=== PATIENT | male | born 1945 | race Caucasian/White ===

== ENCOUNTER 2020-05-08 09:30 | Outpatient (CLI) | payer MEDICARE, OTHER, SELFPAY ==
--- NOTE | ~2020-05-08 | US_ITS ---
EXAMINATION: US aorta [facility] DATE: 05/08/2020 11:48 CDT INDICATION: Hypertension. Diabetes. Obesity. History of smoking. TECHNIQUE: Grayscale, color Doppler, and pulsed Doppler images of the aorta and common iliac arteries were obtained. COMPARISON: None. FINDINGS: The proximal aorta measures 2.7 cm greatest sagittal dimension. The mid aorta measures 2.6 cm greates t sagittal dimension. The distal aorta measures 3.6 cm greatest sagittal dimension. The right common internal iliac artery measures 1 cm. The left common iliac artery measures 1.2 cm. IMPRESSION: 1. Stable infrarenal abdominal aortic aneurysm measuring 3.6 cm greatest sagittal dimension. Reviewed, dictated and finalized at location B. IMPRESSION: 1. Stable infrarenal abdominal aortic aneurysm measuring 3.6 cm greatest sagitt al dimension.
== END 2020-05-08 09:31 | disposition home or self-care (01) ==
LOC: ANHIMG 09:38
PROVIDERS: PCP Family Medicine; Visit Provider Family Medicine
DX: I71.4 Abdominal aortic aneurysm, without rupture (principal)
CPT/HCPCS: 76706

== ENCOUNTER → 2021-03-19 09:32 | Outpatient (CLI) | payer MEDICARE, OTHER, SELFPAY ==
--- NOTE | ~2021-03-19 | XR_ITS ---
XR knee RT min 4V 03/19/2021 10:38 Indication: Right knee pain Procedure: 4 views right knee Comparison: No prior studies for comparison. Findings: There is moderate osteoarthritis of the right knee. No fracture, subluxation or dislocation . No significant joint effusion. No foreign bodies. Impression: 1: Moderate tricompartment osteoarthritis of the right knee. Reviewed, dictated and finalized at location A. Impression: 1: Moderate tricompartment osteoarthritis of the right knee.
--- NOTE | ~2021-03-19 | XR_ITS ---
XR knee LT min 4V 03/19/2021 10:38 Indication: Left knee pain Procedure: 4 views left knee Comparison: No prior studies for comparison. Findings: There is moderate tricompartment osteoarthritis of the left knee. No fracture, subluxation or dislocation. No significant joint effusion. No foreign bodies. Impression: 1: Moderate osteoarthritis of the left knee. Reviewed, dictated and finalized at location A. Impression: 1: Moderate osteoarthritis of the left knee.
== END ==
PROVIDERS: PCP Family Medicine; Visit Provider Family Medicine
DX: M17.0 Bilateral primary osteoarthritis of knee (principal)
CPT/HCPCS: 73564

== ENCOUNTER 2022-05-24 11:44 | Emergency (ER) | payer MEDICARE, OTHER, SELFPAY ==
--- NOTE | ~2022-05-24 | XR_ITS ---
EXAMINATION: [id number] INDICATION: Rib pain after fall TECHNIQUE: A frontal view of the chest and 3 views of the right ribs were obtained. COMPARISON: None. FINDINGS: The lungs are free of acute opacities. No pleural effusion or pneumothorax. The cardiomedia stinal silhouette is normal. No displaced rib fracture is identified. IMPRESSION: 1. No acute cardiopulmonary abnormality or evidence of displaced rib fracture. Reviewed, dictated and finalized at location A.
[2022-05-24 11:46] VITALS: BP 185/80; PULSE 63; RESP 18; TEMP 36.6; O2SAT 100
--- NOTE | 2022-05-24 12:26 | ED.FALL ---
HPI - Fall General Chief Complaint: Fall Stated Complaint: fall, rib pain Time Seen by Provider: 05/24/22 12:01 Source: patient and RN notes reviewed Mode of arrival: ambulatory Limitations: no limitations History of Present Illness HPI Narrative: This is a 76 year old male who presents for evaluation of right rib pain. He states that 1 hour ago his knees buckled and he fell forward. He states he hit his right rib on ground but he denies hitting his head or LOC. He takes aspirin and plavix for history of TIA. He denies dizziness, sob, abdominal pain or any other injuries. He states he just came to ER for xray. Related Data Home Medications Medication Instructions Recorded Confirmed clopidogrel 75 mg tablet mg 05/24/22 Allergies Allergy/AdvReac Type Severity Reaction Status Date / Time Penicillins Allergy Unknown Unknown Verified 04/11/19 11:19 Review of Systems Review of Systems: All systems reviewed & are unremarkable except as noted in HPI and below Constitutional: Constitutional: Denies chills and Denies fatigue ENT: Denies nasal congestion Respiratory: Respiratory: Denies chest congestion, Denies cough and Denies dyspnea Gastrointestinal: Gastrointestinal: Denies abdominal pain, Denies nausea and Denies vomiting Neurologic: Denies dizziness, Denies syncope and Denies headache(s) PMFSH Past Medical History Medical History (Updated 05/24/22 @ 13:12 by Trina De La Fuente MD) TIA (transient ischemic attack) Social History Social History (Updated 05/24/22 @ 12:28 by Trina De La Fuente MD) Smoking status: Former smoker Exam Narrative: GENERAL: Well-appearing, well-nourished, and in no acute distress. HEAD: Normocephalic, atraumatic EYES: PERRLA and EOMI, conjunctiva clear without discharge THROAT:Mucous membranes moist, Oropharynx normal without erythema, exudate, peritonsillar swelling or fluctuance NECK: Supple, without lymphadenopathy or mass RESPIRATORY: No respiratory distress, Airway patent, Respirations non-labored, Clear to auscultation without rales, rhonchi or wheeze HEART: Regular rate and rhythm. No murmur heard. Normal peripheral pulses. ABDOMEN: Soft, nontender, nondistended, normal active bowel sounds. No masses. No rebound or guarding, No organomegaly. EXTREMITIES: No edema, normal strength with full range of motion. SKIN: Warm, dry, normal color without rash NEURO: Alert and oriented x3. CN 2-12 grossly intact. No focal deficits. PSYCH: Normal mood and affect. Course Reevaluation(s) Reevaluation #1: I discussed with patient that xray was negative for fracture. I also explained he may still have fracture is not seen. We discussed pain management. he denies any other questions or concerns. Date: 05/24/22 Time: 13:10 Vital Signs Vital signs: Vital Signs Temperature 98 F 05/24/22 11:46 Pulse Rate 63 05/24/22 11:46 Respiratory Rate 18 05/24/22 11:46 Blood Pressure 185/80 H 05/24/22 11:46 Pulse Oximetry 100 05/24/22 11:46 Temperature 98 F 05/24/22 11:46 Pulse Rate 63 05/24/22 11:46 Respiratory Rate 18 05/24/22 11:46 Blood Pressure 185/80 H 05/24/22 11:46 Pulse Oximetry 100 05/24/22 11:46 MDM - Fall Imaging Data Radiologist's impression: ITS Impressions Ribs w/Chest X-Ray 05/24/22 12:45 IMPRESSION: 1. No acute cardiopulmonary abnormality or evidence of displaced rib fracture. Discharge Plan Discharge Clinical Impression: Rib pain on right side Patient Disposition: Home, Self-Care Condition: Stable Instructions: Antibiotic Form, Rib Contusion (ED) Prescriptions: No Action clopidogrel 75 mg tablet Follow-up/Referrals: UNKNOWN,DOCTOR [Primary Care Provider] -
== END 2022-05-24 13:43 | disposition home or self-care (01) ==
PROVIDERS: Emergency Provider General Practice
DX: R07.81 Pleurodynia (principal); W18.39XA Other fall on same level, initial encounter; Z86.73 Personal history of transient ischemic attack (TIA), and cerebral infarction without residual deficits; Z79.02 Long term (current) use of antithrombotics/antiplatelets; Z79.82 Long term (current) use of aspirin; Z87.891 Personal history of nicotine dependence
CPT/HCPCS: 71101; 99283

== ENCOUNTER 2023-01-10 12:45 | Emergency (ER) | payer MEDICARE, OTHER, SELFPAY ==
[2023-01-10] VITALS (7 sets, daily range): BP systolic 161–200; BP diastolic 70–90; PULSE 60–74; RESP 14–18; O2SAT 95–97
--- NOTE | ~2023-01-10 | XR_ITS ---
XR chest 1V portable 01/10/2023 13:37 Indication: Weakness Procedure: AP portable chest Comparison: No prior studies for comparison. Findings: Cardiomegaly. No focal air space disease, pulmonary edema, pleural effusion or suspected pn eumothorax. Impression: 1: No acute cardiopulmonary disease. Reviewed, dictated and finalized at location B. Impression: 1: No acute cardiopulmonary disease.
--- NOTE | ~2023-01-10 | CT_ITS ---
EXAMINATION: CT brain wo con DATE: 01/10/2023 12:57 INDICATION: Left-sided numbness TECHNIQUE: Computed tomography (CT) of the head was performed without intravenous contrast. The dose- length product was 681.00 mGy-cm. Automated exposure control and iterative reconstruction technique w ere employed. COMPARISON: None FINDINGS: Brain parenchymal volume is mildly decreased. No ventriculomegaly or midline shift. Basilar cisterns are patent. There are scattered mild periventricular and subcortical white matter changes, most likely related to small vessel ischemic disease (microangiopathy). No ventriculomegaly or midlin e shift. Basilar cisterns are patent. There is mild mucosal thickening of the left maxillary and the ethmoid sinuses. No acute infarction, hemorrhage, mass or mass effect. Midline sagittal images demons trate a normal corpus callosum and craniovertebral junction. IMPRESSION: 1. No acute intracranial abnormality. As per stroke protocol, I called these results to emergency room, discussed with Bri Wing at 01/10/2023 13:02 CDT. Reviewed, dictated and finalized at location B. IMPRESSION: 1. No acute intracranial abnormality. As per stroke protocol, I called these results to emergency room, discussed wit h Dr. Yulisa Agustin MD at 01/10/2023 13:02 CDT.
--- NOTE | 2023-01-10 12:48 | ECG_ITS ---
Measurements Intervals [place] Rate: 68 P: -89 MD: 180 QRS: -41 QRSD: 85 T: 31 QT: 407 QTc: 434 Interpretive Statements SINUS RHYTHM ATRIAL AND VENTRICULAR PREMATURE COMPLEXES LEFT AXIS DEVIATION INFERIOR INFARCT, AGE INDETERMINATE BASELINE ARTIFACT- I, II ABNORMAL ECG NO PREVIOUS ECG AVAILABLE FOR COMPARISON Electronically Signed On 01-10-2023 14:03:46 CDT by Marcelino Denney D.O.
[2023-01-10 13:24] LABS: Glucose Point of Care 132 mg/dl (65-105)
--- NOTE | 2023-01-10 13:25 | ED.NEUROSD ---
HPI - Neuro Symptoms/Deficit General Chief Complaint: Suspected CVA Stated Complaint: left sided numbness lasting 30 minutes Time Seen by Provider: 01/10/23 13:02 Source: patient, family and EMS Mode of arrival: EMS Limitations: no limitations History of Present Illness HPI Narrative: Patient is 77 years old white male was sitting watching TV, started having left sinus pressure and pain feeling, subsequently turned into tingling and numbness of the left face and left chest lasted for 15 to 20 minutes then resolved. On arrival to the ED by ambulance patient is asymptomatic. History of diabetes, hypertension, hyperlipidemia, gout, TIA in 1999. Currently on aspirin 324 daily and Plavix, patient takes his blood pressure usually around 2 PM and he arrived to our emergency room at 1 PM. Blood pressure on arrival was 200/90. He denies any focal neurodeficit. Headache, fever, chills, nausea, vomiting or chest pain or shortness of breath Related Data Home Medications Medication Instructions Recorded Confirmed clopidogrel 75 mg tablet mg 05/24/22 Allergies Allergy/AdvReac Type Severity Reaction Status Date / Time Penicillins Allergy Unknown Unknown Verified 01/10/23 12:45 Review of Systems Review of Systems: All systems reviewed & are unremarkable except as noted in HPI and below PMFSH Past Medical History Medical History TIA (transient ischemic attack) Social History Social History Smoking status: Former smoker Exam Narrative: General appearance: Well-developed, well-nourished Skin: Normal color Head: Normocephalic, nontraumatic Eyes: Clear conjunctiva ENT: Oropharynx normal, ears normal, nose normal Neck: Supple, nontender Chest and respiratory: Airway patent, no respiratory distress, no accessory muscle use Heart: Regular rate/rhythm Abdomen: Soft, nontender, no organomegaly, quiet bowel sounds Vascular: Normal peripheral pulses, normal capillary refill. Musculoskeletal: Normal range of motion, nontender back Neurologic: Alert and oriented ?3, [employer] is normal as tested, no gross motor deficit Course Course Emergency Course: Resolved, asymptomatic Vital Signs Vital signs: Vital Signs Pulse Rate 74 01/10/23 13:01 Respiratory Rate 18 01/10/23 13:01 Blood Pressure 200/90 H 01/10/23 13:01 Pulse Oximetry 97 01/10/23 13:01 Oxygen Delivery Room Air 01/10/23 13:01 Pulse Rate 62 01/10/23 15:00 Respiratory Rate 16 01/10/23 15:00 Blood Pressure 172/77 H 01/10/23 15:00 Pulse Oximetry 96 01/10/23 15:00 Oxygen Delivery Room Air 01/10/23 13:01 MDM - Neuro Symptoms/Deficit MDM Narrative Medical decision making narrative: Patient has sudden onset of pain at the left face like sinus pressure followed by tingling left face and left chest, he denies any tingling, numbness or weakness of any one of the extremities. TIA is less likely, stress related symptom is a possibility. Work-up today showed insignificant abnormality to explain patient condition, chest x-ray, CT head showed no acute abnormality. Patient is already on full dose of aspirin and Plavix. No antiplatelet or anticoagulant medication can be added to the patient medicine to prevent future TIA or stroke. Sudden onset of pain at the left sinus area followed by numbness tingling of the left face and tingling of left chest could be secondary to stress especially patient had history of TIA before and that was his first impression. The pt was discharged to home.the pt,s condition upon discharge was fair,education was provided to the pt in re
[2023-01-10 13:36] LABS: Basophils Absolute Auto 0.1 K/mm3 (0.0-0.1); Basophils Percent Auto 0.8 % (0.2-1.2); Eosinophils Absolute Auto 0.4 K/mm3 (0-0.3); Eosinophils Percent Auto 3.7 % (0-4.4); Hematocrit 42.5 % (42.0-52.0); Hemoglobin 14.2 g/dL (14.0-18.0); Immature Granulocyte Absolute 0.03 K/mm3 (0.00-0.031); Immature Granulocyte Percent A 0.3 % (0-0.5); Lymphocytes Percent Auto 26.4 % (18.3-44.2); Mean Corpuscular HGB Conc 33.4 g/dl (32-36); Mean Corpuscular Hemoglobin 33.2 pg (26-34); Mean Corpuscular Volume 99.3 fl (80-100); Mean Platelet Volume 8.8 fl (7.4-10.4); Monocytes Absolute Auto 0.8 K/mm3 (0.1-0.6); Monocytes Percent Auto 7.6 % (2.6-8.5); Neutrophils Absolute Auto 6.5 K/mm3 (1.3-6.7); Neutrophils Percent Auto 61.2 % (45.5-73.1); Platelet Count Result 284 k/mm3 (150-375); Red Blood Count 4.28 M/mm3 (4.6-6.20); Red Cell Distribution Width 13.5 % (11.5-14.5); White Blood Count 10.6 K/mm3 (4.5-10.0)
[2023-01-10 13:47] LABS: INR 1.1; Partial Thromboplastin Time 28.9 SECONDS (22.3-36.8); Prothrombin Time 14.2 Seconds (11.1-14.7)
[2023-01-10 13:48] LABS: Alanine Aminotransferase 27 U/L (6-50); Albumin Level 3.9 g/dL (3.5-5.1); Alkaline Phosphatase 69 U/L (38-126); Anion Gap 7 mmol/L (8-16); Aspartate Amino Transferase 27 U/L (17-59); Bilirubin,Total 0.7 mg/dL (0.2-1.3); Blood Urea Nitrogen 20 mg/dL (9-20); Calcium 8.8 mg/dL (8.4-10.2); Carbon Dioxide 28 mmol/L (22-30); Chloride 106 mmol/L (98-107); Estimated CRCL calculation 67 ml/min; Estimated Glomerular Filt Rate > 60; Glucose 127 mg/dL (65-110); Potassium 3.7 mmol/L (3.4-5.0); Sodium 141 mmol/L (137-145)
[2023-01-10] MEDS: METOPROLOL TARTRATE 50 MG TAB PO (13:50)
[2023-01-10] MEDS: ENALAPRIL MALEATE 10 MG TABLET 20 MG PO (13:50)
[2023-01-10 14:00] LABS: Troponin I < 0.012 ng/mL (0.000-0.034)
== END 2023-01-10 15:55 | disposition home or self-care (01) ==
PROVIDERS: Emergency Provider Emergency Medicine; PCP Internal Medicine
DX: R20.2 Paresthesia of skin (principal); I10 Essential (primary) hypertension; E11.9 Type 2 diabetes mellitus without complications; E78.5 Hyperlipidemia, unspecified; M10.9 Gout, unspecified; Z86.73 Personal history of transient ischemic attack (TIA), and cerebral infarction without residual deficits; Z87.891 Personal history of nicotine dependence; Z79.02 Long term (current) use of antithrombotics/antiplatelets; Z79.82 Long term (current) use of aspirin; I49.1 Atrial premature depolarization; I49.3 Ventricular premature depolarization; R94.31 Abnormal electrocardiogram [ECG] [EKG]
CPT/HCPCS: 36415; 70450; 71045; 80053; 82948; 84484; 85025; 85610; 85730; 93005; 99284; A9270